=== PATIENT | female | born 1995 | race African-American/Black ===

== ENCOUNTER 2022-05-14 19:08 | Emergency (ER) | payer BC ==
[2022-05-14] MEDS ORDERED: Ondansetron 4 MG/2 ML SDV IVPUSH ONE (19:34)
[2022-05-14] MEDS ORDERED: Sodium Chloride 0.9% 1,000 ML IV ONE (19:35)
[2022-05-14 20:43] LABS: BLOOD UREA NITROGEN,BUN 7 mg/dL (7.0-18.0); CARBON DIOXIDE,CO2 25.2 mmol/L (21.0-32.0); CHLORIDE,CL 105 mmol/L (98-107); GLUCOSE RANDOM 99 mg/dL (74-106); POTASSIUM,K 3.6 mmol/L (3.5-5.1); SODIUM,NA 141 mmol/L (136-145)
[2022-05-14 20:44] LABS: ESTIMATED GFR 90 mL/min (>60)
[2022-05-14 21:11] LABS: CORONAVIRUS COVID-19 NAA NEGATIVE (NEGATIVE); INFLUENZA A NAA NEGATIVE (NEGATIVE); INFLUENZA B NAA NEGATIVE (NEGATIVE); RESPIRATORY SYNCYTIAL VIR NAA NEGATIVE (NEGATIVE)
== END 2022-05-14 22:00 | disposition home or self-care (01) ==
LOC: MW.ED 19:08
DX: R11.2 Nausea with vomiting, unspecified (principal); Z20.822 Contact with and (suspected) exposure to COVID-19
CPT/HCPCS: 0241U; 36415; 80053; 84702; 85025; 96361; 96374; 99284; J2405; J7030; 99283